=== PATIENT | male | born 2005 | race Hispanic/Latino ===

== ENCOUNTER 2024-10-04 16:16 | Emergency (ER) | payer OTHER ==
[~2024-10-04] VITALS: Ht 177.8 cm; Wt 84.7 kg
[2024-10-04 18:02] LABS: HEPATITIS B SURFACE ANTIBODY POSITIVE (POSITIVE)
[2024-10-04 18:26] LABS: HIV 1&2 SCREEN NEGATIVE (NEGATIVE)
[2024-10-04 18:34] LABS: HEPATITIS C VIRUS ABY INDEX < 0.02 INDEX (<0.8)
[2024-10-04 18:50] LABS: KETONE, URINE AUTO RFX NEGATIVE (NEGATIVE); LEUKOCYTE ESTERASE UR AUTO RFX NEGATIVE (NEGATIVE); NITRITE, URINE AUTO RFX NEGATIVE (NEGATIVE); RBC, URINE AUTO RFX 0 /HPF (0-3); SQUAM EPITHELIAL CELL UR AURFX 0 /HPF (0-6); WBC, URINE AUTO RFX 0 /HPF (0-3)
[2024-10-04 19:13] LABS: Trichomonas vaginalis (AMP) NOT DETECTED (NEGATIVE)
[2024-10-04 19:36] LABS: GC DNA AMPLIFICATION NEGATIVE (NEGATIVE)
[2024-10-04 20:16] VITALS: BP 136/63; TEMP 98.6; O2SAT 100
== END 2024-10-04 20:18 | disposition home or self-care (01) ==
LOC: M ED 16:16
DX: Z72.51 High risk heterosexual behavior (principal)